=== PATIENT | female | born 1945 | race Two or more races ===

== ENCOUNTER 2018-07-02 09:13 | Day surgery (SDC) | payer OTHER, MEDICAID ==
[2018-07-02] MEDS ORDERED: FENTAnyl 50 MCG/ML VIAL (11:03)
[2018-07-02] MEDS ORDERED: PROPOFOL 20 ML (11:03)
[2018-07-02] MEDS ORDERED: ONDANSETRON 4 MG INJ IV (11:30)
== END 2018-07-02 12:54 | disposition home or self-care (01) ==
LOC: GIL 09:13
DX: D50.9 Iron deficiency anemia, unspecified (principal); K64.8 Other hemorrhoids; K44.9 Diaphragmatic hernia without obstruction or gangrene; K21.9 Gastro-esophageal reflux disease without esophagitis; E11.9 Type 2 diabetes mellitus without complications; I10 Essential (primary) hypertension
CPT/HCPCS: 43239; 82962; 88305; 88312

== ENCOUNTER → 2018-07-11 | Outpatient (CLI) | payer OTHER | END | disposition home or self-care (01) | LOC: HKI 11:33 | DX: M17.12 Unilateral primary osteoarthritis, left knee (principal); I10 Essential (primary) hypertension; E11.8 Type 2 diabetes mellitus with unspecified complications; E03.9 Hypothyroidism, unspecified; G62.9 Polyneuropathy, unspecified; Z79.82 Long term (current) use of aspirin; Z79.84 Long term (current) use of oral hypoglycemic drugs | CPT/HCPCS: 73564 ==